=== PATIENT | female | born 1960 | race Caucasian/White ===

== ENCOUNTER 2017-05-20 19:14 | Emergency (ER) | payer OTHER, BC ==
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
[2017-05-20 19:22] VITALS: BP 120/78; PULSE 90; TEMP 97.8; BMI 27.9
[2017-05-20] MEDS ORDERED: KETOROLAC TROMETHAMINE 30 MG/1 ML VIAL IVPUSH ONE (19:37)
[2017-05-20] MEDS ORDERED: SODIUM CHLORIDE 1,000 ML IV STA (19:37)
[2017-05-20] MEDS ORDERED: KETOROLAC TROMETHAMINE 30 MG/1 ML VIAL ONE (19:46)
[2017-05-20 20:04] LABS: BASO % 0.6 % (0-2.0); EOS % 0.4 % (0-4.5); MCH 31.1 pg (25.7-33.7); MCHC 33.1 g/dl (32.0-36.0); MEAN CELL VOLUME 94.1 fl (80-96); NEUT % 65.5 % (42.8-82.8); PLATELET COUNT 258 K/MM3 (134-434); RDW 13.8 % (11.6-15.6); WHITE BLOOD COUNT 6.4 K/mm3 (4.0-10.8)
[2017-05-20 20:14] LABS: ALBUMIN 4.2 g/dl (3.5-5.0); ALK PHOS 66 U/L (32-92); ANION GAP 7 (8-16); BILIRUBIN,TOTAL 1.2 mg/dl (0.2-1.0); CALCIUM 9.4 mg/dl (8.4-10.2); CO2 28 mmol/L (22-28); CPK 85 IU/L (26-192); CREATININE 0.9 mg/dl (0.6-1.3); GLUCOSE,RANDOM 103 mg/dl (74-106); SGOT/AST 29 U/L (10-42); SGPT/ALT 21 U/L (10-40); TOT PROT 7.2 g/dl (6.4-8.3)
[2017-05-20 20:22] LABS: TROPONIN I (DFP) < 0.03 ng/ml (0.03-0.50)
[2017-05-20] MEDS ORDERED: ACETAMINOPHEN INJECTION 100 ML IVPB ONE (20:23)
[2017-05-20] MEDS ORDERED: ACETAMINOPHEN 1000 MG/100 ML VIAL (NON FORMULARY) IVPB ONE (20:23)
--- NOTE | 2017-05-23 08:26 | EKG ---
Test Reason : Blood Pressure : / mmHG Vent. Rate : 087 BPM Atrial Rate : 087 BPM P-R Int : 128 ms QRS Dur : 084 ms QT Int : 364 ms P-R-T Axes : 033 -24 045 degrees QTc Int : 438 ms NORMAL SINUS RHYTHM NORMAL ECG NO PREVIOUS ECGS AVAILABLE Confirmed by PATSY ALEXIS MD ([id number]) on 05/23/2017 8:25:53 AM Referred By: ABDULLAHI Confirmed By:PATSY ALEXIS MD
== END 2017-05-20 21:06 | disposition home or self-care (01) ==
LOC: FER 19:14
PROC: 3E033NZ Introduction of Analgesics, Hypnotics, Sedatives into Peripheral Vein, Percutaneous Approach (ICD-10-PCS; principal; 2017-05-20)
PROC: 3E033GC Introduction of Other Therapeutic Substance into Peripheral Vein, Percutaneous Approach (ICD-10-PCS; 2017-05-20)
PROC: 3E0337Z Introduction of Electrolytic and Water Balance Substance into Peripheral Vein, Percutaneous Approach (ICD-10-PCS; 2017-05-20)
DX: M94.0 Chondrocostal junction syndrome [Tietze] (principal); A08.4 Viral intestinal infection, unspecified
CPT/HCPCS: 36415; 71010-TC; 80053; 82550; 83690; 84484; 85025; 93005; 93010; 96361; 96374; 96375; 99281-25

== ENCOUNTER 2019-06-05 14:02 | Emergency (ER) | payer OTHER, BC ==
[2019-06-05 14:28] VITALS: BP 165/99; PULSE 81; TEMP 99; BMI 30.1
[2019-06-05 14:59] LABS: EPITHELIAL CELLS MANY /hpf
--- NOTE | 2019-06-05 17:30 | PDOC ---
Documentation entered by Elizabeth Martinez SCRIBE, acting as scribe for David Tristan MD. David Tristan MD: This documentation has been prepared by the Juan agudelo Adrianna, SCRIBE, under my direction and personally reviewed by me in its entirety. I confirm that the documentation accurately reflects all work, treatment, procedures, and medical decision making performed by me. History of Present Illness - General Chief Complaint: Urinary Problem Stated Complaint: PAIN ON URINATION LOWER ABDOMINAL PAIN Time Seen by Provider: 06/05/19 14:40 - History of Present Illness Initial Comments: The patient is a 59 year old female, with a significant PMH of Lupus, Seizures, Lymphoma, psoriasis, psoriatic arthritis, right basal ganglion cyst, nodules on the left lung, sickle cell trait, and HIV (no viral load for many years), who presents to the ED for evaluation of lower abdominal pain for one week. Patient notes she developed lower abdominal pain one day before her last remicade infusion, that is sharp, crampy, and burning in nature (when she presses down on lower abdomen/urethral region). She notes she feels as if there is an object in her urethral region that she feels needs to be expelled (had vaginal mesh insert put in ~6 months ago for loss of bladder control). Patient endorses associated dysuria, subjective fever, chills, and nausea. She notes her urine is yellow and cloudy. Patient was placed on bactrim and diflucan prophylactically last week, and completed both without any change in her symptoms (she feels as if it is getting worse). Her LBM was yesterday, and normal. Denies any vaginal bleeding, itching, or discharge. Allergies: Ciprofloxacin, Levofloxacin Past Surgical History: Cholecystectomy, x3, tummy-tuck Social History: Medical Marijuana (s/p seizures). Former smoker. Occasional EtOH use. No illicit drug use. 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 Past History - Past Medical History Allergies/Adverse Reactions: Allergies Allergy/AdvReac Type Severity Reaction Status Date / Time ciprofloxacin AdvReac Verified 06/05/19 14:05 levofloxacin [From Levaquin] AdvReac Verified 06/05/19 14:05 Home Medications: Ambulatory Orders Abacavir/Dolutegravir/Lamivudi [Triumeq 600-50-300 mg Tablet] 1 tab PO HS Escitalopram Oxalate [Lexapro -] 10 mg PO DAILY 06/05/19 Infliximab [Remicade Infusion -] 500 mg IV MONTHLY 06/05/19 Phenazopyridine HCl [Pyridium] 100 mg PO BID PRN #20 tablet 06/05/19 Progesterone, Micronized [Progesterone] 200 mg PO HS 06/05/19 Zolpidem Tartrate [Zolpidem Tartrate ER] 12.5 mg PO HS 06/05/19 Anemia: No Asthma: No Cancer: No Cardiac Disorders: No CVA: No COPD: No CHF: No Dementia: No Diabetes: No GI Disorders: No Disorders: No HTN: No Hypercholesterolemia: No Liver Disease: No Psychiatric Problems: Yes (DEPRESSION) Seizures: Yes Thyroid Disease: No Other medical history: SLE,PSORIATIC ARTHRITIS, LYMPHOMA,RIGHT BASAL GANGLION CYST,RIGHT FRONTAL C - Surgical History Abdominal Surgery: No Appendectomy: No Cardiac Surgery: No Cholecystectomy: Yes Lung Surgery: No Neurologic Surgery: No Orthopedic Surgery: No - Immunization History Td Vaccination: Yes Immunization Up to Date: No - Psycho Social/Smoking Cessation Hx Smoking Status: No Smoking History: Former smoker Have you smoked in the past 12 months: No Number of Cigarettes Smoked Daily: 0 If you are a former smoker, when did you quit?: 30 YEARS Information on smoking cessation initiated: No Hx Alcohol Use: Yes (SOCIAL) Drug/Substance Use Hx: No Substance Use Type: None Hx Substance Use Treatment: No Review of Systems - Review of Systems Comments:: GENERAL/CONSTITUTIONAL: +Subjective fever. +Chills. No weakness. HEAD, EYES, EARS, NOSE AND THROAT: No change in vision. No ear pain or discharge. No sore throat. CARDIOVASCULAR: No chest pain or shortness of breath. RESPIRATORY: No cough, wheezing, or hemoptysis. GASTROINTESTINAL: +Lower abdominal pain. +Nausea. No vomiting, diarrhea or constipation. GENITOURINARY: +Dysuria. +Yellow, cloudy urine. No frequency, or change in urination. MUSCULOSKELETAL: No joint or muscle swelling or pain. No neck or back pain. SKIN: No rash NEUROLOGIC: No headache, vertigo, loss of consciousness, or change in strength/ sensation. ENDOCRINE: No increased thirst. No abnormal weight change. HEMATOLOGIC/LYMPHATIC: No anemia, easy bleeding, or history of blood clots. ALLERGIC/IMMUNOLOGIC: No hives or skin allergy. *Physical Exam - Vital Signs Last Vital Signs Temp Pulse Resp BP Pulse Ox 99 F 81 16 165/99 97 06/05/19 14:04 06/05/19 14:04 06/05/19 14:04 06/05/19 14:04 06/05/19 14:04 - Physical Exam GENERAL: Awake, alert, and fully oriented, in no acute distress. Cheerful and cooperative. Nontoxic appearing. VITAL SIGNS: Afebrile. Normal vital signs. HEAD: No signs of trauma EYES: PERRLA, EOMI, sclera anicteric, conjunctiva clear ENT: Auricles normal inspection, hearing grossly normal, nares patent, oropharynx clear without exudates. Moist mucosa NECK: Normal ROM, supple, no lymphadenopathy, JVD, nodes, or masses LUNGS: Breath sounds equal, clear to auscultation bilaterally. No wheezes, and no crackles HEART: Regular rate and rhythm, normal S1 and S2, no murmurs, rubs or gallops ABDOMEN: +Mild tenderness to deep palpation in the suprapubic area without guarding or rebound. No localized tenderness to the right or left lower quadrants. Soft, nontender, normoactive bowel sounds. No guarding, no rebound. No masses PELVIC: OS was closed. No abnormal discharge or bleeding. No lesions of the vaginal mucosa or periurethral tissues. No cervical motion tenderness. Uterus is normal size, firm and nontender. No adnexal masses or tenderness. EXTREMITIES: Normal range of motion, no edema. No clubbing or cyanosis. No cords, erythema, or tenderness NEUROLOGICAL: Cranial nerves II through XII grossly intact. Normal speech, normal gait SKIN: Warm, Dry, normal turgor, no rashes or lesions noted ED Treatment Course - ADDITIONAL ORDERS Additional order review: Laboratory Results 06/05/19 14:38 Urine Color Yellow Urine Appearance Cloudy Urine pH 5.5 Urine Protein Negative Urine Glucose (UA) Negative Urine Ketones Negative Urine Blood 1+ H Urine Nitrite Negative Urine Bilirubin Negative Urine Urobilinogen 1.0 Ur Leukocyte Esterase Negative Medical Decision Making - Medical Decision Making 06/05/19 17:27 Patient on Remicade does not appear toxic, looks well, without sign of significant infection Urinalysis is clear except for trace blood. Culture is pending. Symptoms most consistent with cystitis, ie. mild suprapubic tenderness and burning with urination. Vaginal exam shows no inflammation or lesions around the meatus, and no suggestion of vaginitis or vaginal/pelvic disease Patient was treated symptomatically with Pyridium, instructed to check culture in 2 days, that antibiotics may be necessary if there proved to be a urinary tract infection. Caution to return to the ER immediately if she develops signs of serious infection such as fever/chills, chest pain, shortness of breath, abdominal pain, nausea, vomiting, diarrhea, skin rash, body aches, malaise, fatigue. Fully ambulatory, animated and cheerful upon departure to follow-up as directed. Discharge - Discharge Information Problems reviewed: Yes Clinical Impression/Diagnosis: Cystitis Condition: Stable Disposition: HOME - Admission No - Additional Discharge Information Prescriptions: Phenazopyridine HCl [Pyridium] 100 mg PO BID PRN #20 tablet PRN Reason: Bladder pain or pain with urin - Follow up/Referral Referrals: Vitaly Faye MD [Staff Physician] - - Patient Discharge Instructions Patient Printed Discharge Instructions: DI for Interstitial Cystitis Additional Instructions: Drink lots of fluids. Medication to relieve bladder discomfort as directed. Check urine culture results in 2 days. If positive, additional antibiotics may be needed. Consider urology referral for cystoscopy if symptoms persist. Return to ER immediately if there is fever/chills, increased abdominal pain, vomiting, diarrhea, body aches, excessive fatigue or weakness. - Post Discharge Activity
== END 2019-06-05 16:48 | disposition home or self-care (01) ==
LOC: FER 14:02
DX: N30.90 Cystitis, unspecified without hematuria (principal); D57.3 Sickle-cell trait; Z21 Asymptomatic human immunodeficiency virus [HIV] infection status; L40.52 Psoriatic arthritis mutilans; M32.9 Systemic lupus erythematosus, unspecified; R91.8 Other nonspecific abnormal finding of lung field; Z87.891 Personal history of nicotine dependence; Z88.1 Allergy status to other antibiotic agents; Z85.72 Personal history of non-Hodgkin lymphomas
CPT/HCPCS: 81003; 81015; 87086; 99282-25

== ENCOUNTER 2024-02-14 14:03 | Emergency (ER) | payer OTHER, BC ==
[2024-02-14 14:50] VITALS: BP 173/74; PULSE 82; RESP 18; TEMP 98.5; BMI 29.2
== END 2024-02-14 15:20 | disposition home or self-care (01) ==
LOC: FER 14:03
DX: M25.512 Pain in left shoulder (principal)
CPT/HCPCS: 73030-TC-LT-FY; 99283-25

== ENCOUNTER 2024-08-11 14:20 | Emergency (ER) | payer OTHER, BC ==
[2024-08-11 14:43] VITALS: BP 142/81; PULSE 72; RESP 16; TEMP 98.4; BMI 29.2
[2024-08-11] MEDS ORDERED: DIPHTH,PERTUSS(ACELL),TET 0.5 ML DISP.SYRIN IM ONE (14:50)
[2024-08-11] MEDS: DIPHTH,PERTUSS(ACELL),TET 0.5 ML DISP.SYRIN IM ONE (15:12)
== END 2024-08-11 15:30 | disposition home or self-care (01) ==
LOC: FER 14:20
PROC: 0HQFXZZ Repair Right Hand Skin, External Approach (ICD-10-PCS; principal; 2024-08-11)
PROC: 3E0234Z Introduction of Serum, Toxoid and Vaccine into Muscle, Percutaneous Approach (ICD-10-PCS; 2024-08-11)
DX: S61.411A Laceration without foreign body of right hand, initial encounter (principal); Z23 Encounter for immunization; X58.XXXA Exposure to other specified factors, initial encounter
CPT/HCPCS: 12001-25; 90471; 90715; 99284-25